=== PATIENT | male | born 1945 | race Two or more races ===

== ENCOUNTER → 2019-03-07 | Outpatient (CLI) | payer MEDICARE, MEDICAID ==
[~2019-03-07] MED LIST: ASPI-903 PO; BENA40TA56 PO; DOCU-144 PO; EZET10TA31 PO; GLIM1TAB2 PO; HYDR-3498 PO; HYDR25TA6 PO; METO-448 PO; MULT-703 PO; SITA1TAB7 PO; [UNRECOGNIZED DRUG - CODE] PO
== END | disposition home or self-care (01) ==
LOC: U/S 08:56
PROVIDERS: ATTEND Internal Medicine
DX: R10.9 Unspecified abdominal pain (principal)
CPT/HCPCS: 76700